=== PATIENT | female | born 1935 | race African-American/Black ===

== ENCOUNTER 2017-12-04 08:49 | Inpatient (IN) | payer MEDICARE, MEDICAID ==
[~2017-12-04] VITALS: Ht 167.6 cm; Wt 108.9 kg
[2017-12-04] MEDS ORDERED: ASPIRIN 81MG TABLET PO ONE (09:30)
[2017-12-04] MEDS ORDERED: NITROGLYCERIN 0.4MG TABLET SL SL PRN (09:30)
[2017-12-04 09:45] LABS: BASOPHILS % 0.3 % (0.0-2.0); EOSINOPHILS % 0.7 % (0.0-5.0); HEMATOCRIT. 35.7 % (36.0-48.0); HEMOGLOBIN. 12.4 g/dL (12.0-16.0); MEAN CORPUSCULAR HEMOGLOBIN 31.3 pg (28.0-32.0); MEAN CORPUSCULAR VOLUME 90.3 fL (81.0-99.0); MONOCYTES % 6.7 % (2.0-8.0); NEUTROPHILS % 82.3 % (40.0-76.0); PLATELET 217 x1000/uL (130-400); RED BLOOD CELL COUNT 3.95 mill/uL (4.2-5.4); RED CELL DISTRIBUTION WIDTH 13.5 % (11.6-14.6)
[2017-12-04 09:51] LABS: CHLORIDE 85 mEq/L (98-107)
[2017-12-04 09:56] LABS: D-DIMER 1.38 mg/L FEU (<0.50); INR 1.1; PARTIAL THROMBOPLASTIN TIME 25.4 sec (23.4-31.0); PROTHROMBIN TIME 11.1 sec (9.1-11.1)
[2017-12-04] MEDS ORDERED: ONDANSETRON HCL 4MG/2ML INJ IV PRN (15:45)
[2017-12-04] MEDS ORDERED: NA PHOS,M-B/NA PHOS,DI-BA ENEMA 118ML PR PRN (15:45)
[2017-12-04] MEDS ORDERED: CLONIDINE 0.1MG TABLET PO PRN (15:45)
[2017-12-04] MEDS ORDERED: DOCUSATE SODIUM 100MG CAPSULE PO PRN (15:45)
[2017-12-04] MEDS ORDERED: MORPHINE SULFATE 4 MG/ML CPJ (NOT FOR IM USE) IV PRN (15:45)
[2017-12-04] MEDS ORDERED: MAGNESIUM/ALUMINUM HYDROXIDE/SIMETHICONE 30ML UDC PO PRN (15:45)
[2017-12-04] MEDS ORDERED: GUAIFENESIN 200MG/10ML SUGAR FREE UDC PO PRN (15:45)
[2017-12-04] MEDS ORDERED: IOHEXOL-350 100 ML BOTTLE ONE (16:56)
[2017-12-04 19:22] VITALS: BP 166/68
[2017-12-04] MEDS ORDERED: ATOR-2 PO (20:17)
[2017-12-04] MEDS ORDERED: HYDR12.529 PO (20:17)
[2017-12-04] MEDS ORDERED: AMLO5TAB88 PO (20:17)
[2017-12-04] MEDS ORDERED: ALLO100T PO (20:17)
[2017-12-04] MEDS ORDERED: ATEN50TA PO (20:17)
[2017-12-04] MEDS ORDERED: DOCU-150 PO (20:17)
[2017-12-04] MEDS ORDERED: PNEUMOCOCCAL 23-VAL P-SAC VAC 0.5 ML IM ONE (20:30)
[2017-12-04] MEDS ORDERED: INFLUENZA VIRUS VACCINE(AFLURIA) 0.5ML SYR IM ONE (20:30)
[2017-12-04] MEDS: ENOXAPARIN 30MG/0.3ML SYR SUBCUT SCH (21:23)
[2017-12-04 21:55] VITALS: BP 188/55
[2017-12-05] VITALS: BP 107/51
[2017-12-05 01:24] LABS: CREATINE KINASE 69 IU/L (26-192)
[2017-12-05 01:25] LABS: CREATINE KINASE MB FRACTION < 1.0 ng/mL (0.5-3.6)
[2017-12-05 04:00] VITALS: BP 124/65
[2017-12-05 08:00] VITALS: BP 91/55
[2017-12-05 08:20] LABS: BASOPHILS % 0.4 % (0.0-2.0); EOSINOPHILS % 0.4 % (0.0-5.0); HEMATOCRIT. 36.3 % (36.0-48.0); HEMOGLOBIN. 12.5 g/dL (12.0-16.0); LYMPHOCYTES % 13.2 % (20.0-50.0); MEAN CORPUSCULAR HEMOGLOBIN 31.5 pg (28.0-32.0); MEAN CORPUSCULAR VOLUME 91.4 fL (81.0-99.0); MEAN PLATELET VOLUME 9.5 fl (7.4-10.4); MONOCYTES % 7.2 % (2.0-8.0); NEUTROPHILS % 78.8 % (40.0-76.0); PLATELET 233 x1000/uL (130-400); RED BLOOD CELL COUNT 3.97 mill/uL (4.2-5.4); RED CELL DISTRIBUTION WIDTH 13.7 % (11.6-14.6)
[2017-12-05 08:54] LABS: CHLORIDE 85 mEq/L (98-107)
[2017-12-05] MEDS ORDERED: AMLODIPINE 10MG TABLET PO SCH (09:00)
[2017-12-05 09:03] LABS: LDL CHOLESTEROL 48 mg/dL (5-100)
[2017-12-05 09:04] LABS: CREATINE KINASE 62 IU/L (26-192); HDL CHOLESTEROL 45 mg/dL (40-59)
[2017-12-05 09:07] LABS: CREATINE KINASE MB FRACTION < 1.0 ng/mL (0.5-3.6)
[2017-12-05] MEDS: ASPIRIN 81MG EC TABLET PO SCH (09:53)
[2017-12-05] MEDS: ENOXAPARIN 30MG/0.3ML SYR SUBCUT SCH ×2 (09:54→20:57)
[2017-12-05] MEDS: ATENOLOL 50 MG TABLET PO SCH (11:00)
[2017-12-05 12:00] VITALS: BP 135/58
[2017-12-05] MEDS: HYDROCHLOROTHIAZIDE 25MG TABLET PO SCH (14:27)
[2017-12-05] MEDS: ALLOPURINOL 100 MG TABLET PO SCH (14:29)
[2017-12-05] MEDS: AMLODIPINE 5MG TABLET PO SCH (14:29)
[2017-12-05] MEDS: PANTOPRAZOLE SODIUM 40 MG/VIAL IV SCH (14:30)
[2017-12-05] MEDS: SODIUM CHLORIDE 0.9% 1,000 ML IV SCH (15:42)
[2017-12-05 16:00] VITALS: BP 118/56
[2017-12-05 20:00] VITALS: BP 111/48
[2017-12-05] MEDS: ATORVASTATIN CALCIUM 40MG TABLET PO SCH (20:57)
[2017-12-06] VITALS: BP 127/57
[2017-12-06] MEDS: SODIUM CHLORIDE 0.9% 1,000 ML IV SCH ×2 (01:52→17:37)
[2017-12-06 04:00] VITALS: BP 129/66
[2017-12-06 08:00] VITALS: BP 128/53
[2017-12-06] MEDS: PANTOPRAZOLE SODIUM 40 MG/VIAL IV SCH (09:06)
[2017-12-06] MEDS: HYDROCHLOROTHIAZIDE 25MG TABLET PO SCH (09:06)
[2017-12-06] MEDS: ALLOPURINOL 100 MG TABLET PO SCH (09:06)
[2017-12-06] MEDS: ENOXAPARIN 30MG/0.3ML SYR SUBCUT SCH ×2 (09:06→21:50)
[2017-12-06] MEDS: AMLODIPINE 5MG TABLET PO SCH (09:06)
[2017-12-06] MEDS: ATENOLOL 50 MG TABLET PO SCH (09:06)
[2017-12-06] MEDS: ASPIRIN 81MG EC TABLET PO SCH (09:07)
[2017-12-06 12:00] VITALS: BP 132/75
[2017-12-06 16:00] VITALS: BP 151/63
[2017-12-06] MEDS: HYDROCODONE/ACETAMINOPHEN 5/325MG TABLET PO PRN (17:37)
[2017-12-06] MEDS: ACETAMINOPHEN 325MG TABLET PO PRN (17:59)
[2017-12-06] MEDS ORDERED: REGADENOSON 0.4 MG/5 ML IV NR (18:15)
[2017-12-06 20:00] VITALS: BP 124/59
[2017-12-06 20:36] LABS: T4 FREE 1.33 ng/dL (0.76-1.46)
[2017-12-06] MEDS: CLOPIDOGREL 75MG TABLET PO SCH (21:49)
[2017-12-06] MEDS: ATORVASTATIN CALCIUM 40MG TABLET PO SCH (21:49)
[2017-12-07] VITALS: BP 150/61
[2017-12-07 04:00] VITALS: BP 142/59
[2017-12-07 08:00] VITALS: BP 142/43
[2017-12-07] MEDS: ENOXAPARIN 30MG/0.3ML SYR SUBCUT SCH ×2 (09:00→20:44)
[2017-12-07] MEDS ORDERED: REGADENOSON 0.4 MG/5 ML IV ONE (09:18)
[2017-12-07] MEDS: AMLODIPINE 5MG TABLET PO SCH (10:32)
[2017-12-07] MEDS: FAMOTIDINE 20MG TABLET PO SCH (10:33)
[2017-12-07] MEDS: CLOPIDOGREL 75MG TABLET PO SCH (10:33)
[2017-12-07] MEDS: ASPIRIN 81MG TABLET PO SCH (10:33)
[2017-12-07] MEDS: ALLOPURINOL 100 MG TABLET PO SCH (10:33)
[2017-12-07] MEDS: ATENOLOL 50 MG TABLET PO SCH (10:33)
[2017-12-07] MEDS: SODIUM CHLORIDE 0.9% 1,000 ML IV SCH ×2 (10:39→15:24)
[2017-12-07 12:00] VITALS: BP 132/52
[2017-12-07 16:00] VITALS: BP 150/51
[2017-12-07 20:00] VITALS: BP 140/57
[2017-12-07] MEDS: ATORVASTATIN CALCIUM 40MG TABLET PO SCH (20:44)
[2017-12-08] VITALS: BP 117/91
[2017-12-08 04:00] VITALS: BP 143/51
[2017-12-08 08:00] VITALS: BP 137/62
[2017-12-08] MEDS: SODIUM CHLORIDE 0.9% 1,000 ML IV SCH (08:55)
[2017-12-08] MEDS: ALLOPURINOL 100 MG TABLET PO SCH (08:56)
[2017-12-08] MEDS: CLOPIDOGREL 75MG TABLET PO SCH (08:56)
[2017-12-08] MEDS: ASPIRIN 81MG TABLET PO SCH (08:56)
[2017-12-08] MEDS: ENOXAPARIN 30MG/0.3ML SYR SUBCUT SCH ×2 (08:56→21:27)
[2017-12-08] MEDS: AMLODIPINE 5MG TABLET PO SCH (08:58)
[2017-12-08] MEDS: FAMOTIDINE 20MG TABLET PO SCH ×2 (08:58→21:26)
[2017-12-08] MEDS: ATENOLOL 50 MG TABLET PO SCH (09:01)
[2017-12-08 12:00] VITALS: BP 124/45
[2017-12-08] MEDS ORDERED: BISACODYL 10MG SUPP PR PRN (13:15)
[2017-12-08 13:54] LABS: CHLORIDE 95 mEq/L (98-107)
[2017-12-08 16:00] VITALS: BP 136/41
[2017-12-08 18:13] LABS: AMMONIA 39 uMol/L (<32)
[2017-12-08 19:11] LABS: VITAMIN B12 SERUM 449 pg/mL (211-911)
[2017-12-08 20:00] VITALS: BP 110/53
[2017-12-08] MEDS: LACTULOSE 20G/30ML UDC PO SCH (21:00)
[2017-12-08] MEDS: ATORVASTATIN CALCIUM 40MG TABLET PO SCH (21:26)
[2017-12-08] MEDS: POLYETHYLENE GLYCOL 3350 (17GM) 1 DOSE PACK PO SCH (21:27)
[2017-12-08] MEDS: HYDROCODONE/ACETAMINOPHEN 5/325MG TABLET PO PRN (23:04)
[2017-12-08] MEDS: ACETAMINOPHEN 325MG TABLET PO PRN (23:06)
[2017-12-09] VITALS (8 sets, daily range): BP systolic 109–185; BP diastolic 52–86
[2017-12-09] MEDS: LACTULOSE 20G/30ML UDC PO SCH ×4 (08:58→20:46)
[2017-12-09] MEDS: FAMOTIDINE 20MG TABLET PO SCH ×2 (08:58→20:43)
[2017-12-09] MEDS: ENOXAPARIN 30MG/0.3ML SYR SUBCUT SCH ×2 (08:58→20:40)
[2017-12-09] MEDS: ALLOPURINOL 100 MG TABLET PO SCH (08:58)
[2017-12-09] MEDS: ATENOLOL 50 MG TABLET PO SCH (08:59)
[2017-12-09] MEDS: AMLODIPINE 5MG TABLET PO SCH (08:59)
[2017-12-09] MEDS ORDERED: DIATR MEGLU/DIATRIZOATE SOLN 30ML PO NR (10:30)
[2017-12-09] MEDS: ACETAMINOPHEN 325MG TABLET PO PRN ×2 (11:11→17:28)
[2017-12-09] MEDS: SODIUM CHLORIDE 0.9% 1,000 ML IV SCH (11:12)
[2017-12-09] MEDS ORDERED: BISACODYL 10MG SUPP PR PRN (11:45)
[2017-12-09] MEDS ORDERED: NA PHOS,M-B/NA PHOS,DI-BA ENEMA 118ML PR NR (11:45)
[2017-12-09] MEDS ORDERED: GADOBENATE DIMEGLUMINE 529 MG/ML 10ML IV ONE (16:07)
[2017-12-09] MEDS: DOCUSATE SODIUM 100MG CAPSULE PO SCH (17:28)
[2017-12-09] MEDS: ATORVASTATIN CALCIUM 40MG TABLET PO SCH (20:40)
[2017-12-09] MEDS: POLYETHYLENE GLYCOL 3350 (17GM) 1 DOSE PACK PO SCH (20:47)
[2017-12-09] MEDS ORDERED: POLYETHYLENE GLYCOL 3350 (17GM) 1 DOSE PACK PO SCH (21:00)
[2017-12-10 03:59] VITALS: BP 153/68
[2017-12-10] MEDS: SODIUM CHLORIDE 0.9% 1,000 ML IV SCH ×2 (05:42→22:11)
[2017-12-10 08:00] VITALS: BP 116/62
[2017-12-10] MEDS ORDERED: NA PHOS,M-B/NA PHOS,DI-BA ENEMA 118ML PR PRN (09:00)
[2017-12-10] MEDS: ATENOLOL 50 MG TABLET PO SCH (09:01)
[2017-12-10] MEDS: FAMOTIDINE 20MG TABLET PO SCH ×2 (09:01→21:49)
[2017-12-10] MEDS: ALLOPURINOL 100 MG TABLET PO SCH (09:02)
[2017-12-10] MEDS: AMLODIPINE 5MG TABLET PO SCH (09:02)
[2017-12-10] MEDS: DOCUSATE SODIUM 100MG CAPSULE PO SCH ×2 (09:03→17:26)
[2017-12-10] MEDS: ACETAMINOPHEN 325MG TABLET PO PRN ×2 (09:04→18:14)
[2017-12-10] MEDS: ENOXAPARIN 30MG/0.3ML SYR SUBCUT SCH ×2 (09:05→21:50)
[2017-12-10 10:13] LABS: HEMATOCRIT 34.7 % (36.0-48.0); HEMOGLOBIN 11.7 g/dL (12.0-16.0); MEAN CORPUSCULAR HEMOGLOBIN 31.6 pg (28.0-32.0); MEAN CORPUSCULAR VOLUME 93.6 fL (81.0-99.0); PLATELET 199 x1000/uL (130-400); RED BLOOD CELL COUNT 3.71 mill/uL (4.2-5.4); RED CELL DISTRIBUTION WIDTH 13.6 % (11.6-14.6)
[2017-12-10 10:53] LABS: CHLORIDE 96 mEq/L (98-107)
[2017-12-10 12:00] VITALS: BP 100/52
[2017-12-10 16:00] VITALS: BP 122/63
[2017-12-10] MEDS: LACTULOSE 20G/30ML UDC PO SCH (17:26)
[2017-12-10 20:07] VITALS: BP 148/65
[2017-12-10] MEDS: POLYETHYLENE GLYCOL 3350 (17GM) 1 DOSE PACK PO SCH (21:00)
[2017-12-10] MEDS: ATORVASTATIN CALCIUM 40MG TABLET PO SCH (21:49)
[2017-12-10 23:56] VITALS: BP 159/70
[2017-12-11 04:00] VITALS: BP 152/58
[2017-12-11 06:14] LABS: BASOPHILS % 0.5 % (0.0-2.0); EOSINOPHILS % 3.9 % (0.0-5.0); HEMATOCRIT. 28.2 % (36.0-48.0); LYMPHOCYTES % 20.8 % (20.0-50.0); MEAN CORPUSCULAR HEMOGLOBIN 32.5 pg (28.0-32.0); MEAN CORPUSCULAR VOLUME 91.4 fL (81.0-99.0); MEAN PLATELET VOLUME 9.5 fl (7.4-10.4); MONOCYTES % 7.6 % (2.0-8.0); NEUTROPHILS % 67.2 % (40.0-76.0); PLATELET 184 x1000/uL (130-400); RED BLOOD CELL COUNT 3.09 mill/uL (4.2-5.4); RED CELL DISTRIBUTION WIDTH 13.7 % (11.6-14.6)
[2017-12-11 06:56] LABS: AMMONIA 27 uMol/L (<32)
[2017-12-11 07:57] LABS: CHLORIDE 94 mEq/L (98-107); PHOSPHORUS 3.4 mg/dL (2.5-4.9)
[2017-12-11 08:00] VITALS: BP 167/62
[2017-12-11] MEDS ORDERED: BISACODYL 10MG SUPP PR SCH (08:40)
[2017-12-11] MEDS: FAMOTIDINE 20MG TABLET PO SCH ×2 (09:20→21:12)
[2017-12-11] MEDS: ALLOPURINOL 100 MG TABLET PO SCH (09:21)
[2017-12-11] MEDS: AMLODIPINE 5MG TABLET PO SCH (09:21)
[2017-12-11] MEDS: DOCUSATE SODIUM 100MG CAPSULE PO SCH ×2 (09:21→18:36)
[2017-12-11] MEDS: ENOXAPARIN 30MG/0.3ML SYR SUBCUT SCH ×2 (09:22→21:12)
[2017-12-11] MEDS: ATENOLOL 50 MG TABLET PO SCH (09:26)
[2017-12-11 12:00] VITALS: BP 118/44
[2017-12-11] MEDS ORDERED: NA PHOS,M-B/NA PHOS,DI-BA ENEMA 118ML PR SCH (13:00)
[2017-12-11] MEDS: SODIUM CHLORIDE 0.9% 1,000 ML IV SCH (14:13)
[2017-12-11] MEDS: ACETAMINOPHEN 325MG TABLET PO PRN (15:20)
[2017-12-11 16:00] VITALS: BP 134/60
[2017-12-11] MEDS: LACTULOSE 20G/30ML UDC PO SCH (18:36)
[2017-12-11 20:00] VITALS: BP 125/51
[2017-12-11] MEDS: ATORVASTATIN CALCIUM 40MG TABLET PO SCH (21:07)
[2017-12-11] MEDS: POLYETHYLENE GLYCOL 3350 (17GM) 1 DOSE PACK PO SCH (21:12)
[2017-12-11 21:37] VITALS: BP 125/51
[2017-12-12 04:16] LABS: CANCER ANTIGEN 125 9.9 U/mL (0.0-38.1)
[2017-12-12 07:16] LABS: IMMUNOGLOBULIN A 318 mg/dL (64-422); IMMUNOGLOBULIN G 1394 mg/dL (700-1600); IMMUNOGLOBULIN M 99 mg/dL (26-217)
[2017-12-14 17:11] LABS: 25-HYDROXY VITAMIN D3 12 ng/mL (.)
== END 2017-12-11 23:55 | disposition short-term general hospital (02) | DRG 543 ==
LOC: ER 08:49 → 7WST 13:26 → EDBEDREQ 13:28 → EDBEDREQTM 13:28 → ENRESERV 15:20 → SUPCPDRO 15:30 → CANBEDREQ 16:15
PROVIDERS: ADMIT Hospitalist; ATTEND Hospitalist
DX: M84.58XA Pathological fracture in neoplastic disease, other specified site, initial encounter for fracture (principal); E87.1 Hypo-osmolality and hyponatremia; G82.20 Paraplegia, unspecified; I42.9 Cardiomyopathy, unspecified; C79.49 Secondary malignant neoplasm of other parts of nervous system; M10.9 Gout, unspecified; I25.10 Atherosclerotic heart disease of native coronary artery without angina pectoris; C80.1 Malignant (primary) neoplasm, unspecified; E11.9 Type 2 diabetes mellitus without complications; E66.01 Morbid (severe) obesity due to excess calories; M50.30 Other cervical disc degeneration, unspecified cervical region; M51.34 Other intervertebral disc degeneration, thoracic region; M51.36 Other intervertebral disc degeneration, lumbar region; M43.13 Spondylolisthesis, cervicothoracic region; E78.5 Hyperlipidemia, unspecified; I10 Essential (primary) hypertension; I25.2 Old myocardial infarction; G89.29 Other chronic pain; M48.04 Spinal stenosis, thoracic region; M48.02 Spinal stenosis, cervical region; M48.061 Spinal stenosis, lumbar region without neurogenic claudication; Z96.652 Presence of left artificial knee joint; Z86.73 Personal history of transient ischemic attack (TIA), and cerebral infarction without residual deficits; Z90.49 Acquired absence of other specified parts of digestive tract; Z91.81 History of falling; Z79.82 Long term (current) use of aspirin; Z68.38 Body mass index [BMI] 38.0-38.9, adult; M94.0 Chondrocostal junction syndrome [Tietze]
CPT/HCPCS: 36415; 70551; 71045; 71275; 72141; 72146; 72147; 72148; 74176; 78452; 80048; 80053; 80061; 82105; 82140; 82306; 82378; 82550; 82553; 82607; 82784; 83036; 83735; 83880; 84100; 84439; 84443; 84484; 84630; 85025; 85027; 85379; 85610; 85730; 86300; 86304; 86334; 93005; 93017; 93306; 93923; 93970; 97163; 97166; 97530; 99285; A6261; A9500; A9577; C1893; C9113; J1650; J2405; J2785; J7030; Q9963; Q9967